=== PATIENT | male | born 1950 | race Caucasian/White ===

== ENCOUNTER 2018-12-08 00:51 | Outpatient (CLI) | payer OTHER ==
[2018-12-08 09:53] LABS: Bilirubin Negative (Negative); Blood, Urine Negative (Negative); Clarity CLEAR (Clear); Glucose, Urine (Dipstick) Negative (Negative); Leukocyte Negative (Negative); Nitrite Negative (Negative); Protein, Urine (Dipstick) Negative (Neg-Trace); Specific Gravity, Urine 1.015 (1.002-1.036); Urobilinogen 0.2 mg/dL (0.2-1.0)
[2018-12-08 09:54] LABS: Bacteria/HPF None Seen HPF (None Seen); Hyaline Casts/LPF 0-3 HYALINE CAST LPF (0-3 Hyaline); RBC/HPF 0-3 HPF (0-3); Squamous Epithelial None Seen HPF (0-3); WBC/HPF None Seen HPF (0-3)
[2018-12-08 09:55] LABS: #Eosinphils 0.6 thou/uL (0.0-0.7); #Lymphocytes 1.4 thou/uL (1.20-3.40); #Monocytes 0.9 thou/uL (0.11-0.59); #Neutrophils 5.7 thou/uL (1.40-6.50); %Basophils 0.2 % (0.0-1.0); %Eosinophils 7.1 % (0.0-10.0); %Lymphocytes 16.4 % (21.0-51.0); %Monocytes 9.9 % (0.0-10.0); %Neutrophils 66.4 % (42.0-75.0); Hemoglobin 14.4 g/dL (14.0-18.0); Mean Corpuscular HGB CONC 33.1 g/dL (32.0-36.0); Mean Corpuscular Hemoglobin 29.8 pg (27.0-31.0); Mean Corpuscular Volume 90.1 fL (78.0-98.0); Mean Platelet Volume 8.2 fL (7.4-10.4); Platelet Count 262 thou/uL (130-400); RBC Distribution Width 11.6 % (11.5-14.5); Red Blood Cell (RBC) Count 4.83 mill/uL (4.70-6.10); White Blood Cell (WBC) Count 8.7 thou/uL (4.8-10.8)
[2018-12-08 10:14] LABS: Anion Gap 11 mmol/L (10-20); BUN (Urea Nitrogen) 19 mg/dL (8.4-25.7); Calc. Creatinine Clearance 0 mL/min (70-130); Calcium 10.6 mg/dL (7.8-10.44); Carbon Dioxide 29 mmol/L (23-31); Chloride 102 mmol/L (98-107); Estimated GFR-MDRD 52; Glucose 109 mg/dL (80-115); Potassium 4.5 mmol/L (3.5-5.1); Sodium 137 mmol/L (136-145)
--- NOTE | 2018-12-08 16:49 | EKG ---
Test Reason : Blood Pressure : / mmHG Vent. Rate : 060 BPM Atrial Rate : 060 BPM P-R Int : 156 ms QRS Dur : 086 ms QT Int : 406 ms P-R-T Axes : 059 040 021 degrees QTc Int : 406 ms Normal sinus rhythm Normal ECG No previous ECGs available Confirmed by DR. Lance SPIRNGER ([id number]) on 12/08/2018 4:49:02 PM Referred By: SHAHID Confirmed By:DR. Lance SPRINGER
== END 2018-12-08 00:52 | disposition home or self-care (01) ==
LOC: LABBT 00:51
PROVIDERS: ATTEND Orthopaedic Surgery Hand Surgery
DX: Z01.818 Encounter for other preprocedural examination (principal); M18.12 Unilateral primary osteoarthritis of first carpometacarpal joint, left hand
CPT/HCPCS: 80048; 81001; 85025; 93005; 93010

== ENCOUNTER 2018-12-15 10:48 | Day surgery (SDC) | payer OTHER ==
[2018-12-08 09:09] VITALS: BMI 25.8
[~2018-12-15 10:48] MED LIST: Dexamethasone 20 MG/5 ML VIAL ONE; Ketorolac Tromethamine 30 MG/ML VIAL ONE; Lidocaine 1% PF 5 ML VIAL ONE; Ondansetron PF 4 MG/2 ML Vial ONE; PROPOFOL 200 MG/20 ML VIAL ONE
[2018-12-15] MEDS ORDERED: Bupivacaine PF 0.5% 30 ML VIAL ONE (13:08)
[2018-12-15] MEDS ORDERED: Fentanyl 250 MCG/5 ML VIAL ONE (13:08)
[2018-12-15] MEDS ORDERED: Lidocaine 2% Jelly 5 ML TUBE ONE (13:10)
--- NOTE | 2018-12-15 15:42 | RAD ---
F4 intraoperative images of the left wrist: 12/15/2018 COMPARISON: None available HISTORY: Left wrist surgery FINDINGS: 4 intraoperative images are provided. A frontal and lateral radiograph is provided which de monstrates a percutaneous pin overlying the distal carpal row laterally in the region of the trapeziu m. The second 2 images demonstrate percutaneous hands overlying the proximal first and second metacarpal shafts. The trapezium appears absent on the second 2 images. IMPRESSION: Intraoperative imaging as detailed above.
[2018-12-15] MEDS ORDERED: Ketorolac Tromethamine 30 MG/ML VIAL ONE (16:52)
--- NOTE | 2018-12-16 08:15 | OP ---
DATE OF PROCEDURE: 12/15/2018 PREOPERATIVE DIAGNOSIS: Left thumb carpometacarpal osteoarthritis. POSTOPERATIVE DIAGNOSIS: Left thumb carpometacarpal osteoarthritis with over 80% loss of chondral surface on both sides of the thumb, carpometacarpal joint, marked subluxation. PROCEDURES PERFORMED: 1. Left thumb ligament replacement tendon interposition arthroplasty, carpometacarpal joint. 2. Flexor carpi radialis transfer. 3. Trapeziectomy, total. 4. C-arm supervision. 5. Application of short-arm splint. TOURNIQUET TIME: 106 minutes. ESTIMATED BLOOD LOSS: 15 mL. INDICATIONS: The patient failed conservative treatments including injections, modification of lifestyle, and splinting with radiographic and clinical findings consistent with the diagnosis above. DESCRIPTION OF PROCEDURE: After successful general endotracheal anesthesia by [facility], the patient had the time-out done, the limb was prepped and draped, and the curvilinear incision hockey-stick centered over the carpometacarpal joint was outlined along with the harvest FCR incisions. We carried this incision after exsanguination up through the skin and subcutaneous tissue. We released the fascia over the thenar muscles from the base of the thumb, protecting all superficial radial nerve branches. We then went just dorsal to the abductor pollicis longus and released the wrist joint capsule, tagging this with 2 heavy Vicryl stitches. Then, we proceeded to remove the remaining joint capsule of both radial dorsal and radial palmar from the trapezium. We identified very proximally the wound brachioradialis, from the sidewall, trapezium retracted and then completed the removal of the scaphotrapezial joint capsule and the trapezoid joint capsule as well as the carpometacarpal joint attachment. We lifted the trapezium out of 1 motion. I placed a heavy 3-0 Prolene in the posterior ulnar capsule just below the level of the flexor carpi radialis insertion to the second metacarpal. Then, we used a 2.5 drill bit to create an oblique approximately 30-degree angle hole from the lateral sidewall of the metacarpal base of the thumb into the junction of the chondral and subchondral bone. We removed all osteophytes from this site and afterwards, we then used a curette to enlarge the hole. We harvested the entire flexor carpi radialis tendon using the 2 incisions described above, brought into the wound and removed all muscle and then had to trim approximately one-third of it to make it fit through the tunnel. We then brought it through the tunnel and tensioned it, holding with 2 K-wires to hold the metacarpal base in appropriate alignment in terms of abduction in superior and inferior orientation. Once we had done this, the pins were in place. We then took the abductor pollicis. The flexor carpi radialis graft, secured it to the side of the metacarpal x2, the abductor pollicis longus x2, and then the underneath the proximal surface of the metacarpal base x2. Then, we weaned into remainder portion of the tendon and then tied that to the 3-0 heavy Prolene deep in the capsule. We released the tourniquet, obtained hemostasis, closed the capsule rim of the carpometacarpal joint to itself and then to any members of the deep joints of the carpus. Once this was done, we had hemostasis. We then closed the incision. We then cut the wires just outside the skin at the , closed the fascia with a 3-0 Monocryl, used a full running Monocryl to close subcutaneous tissue at all incisions and then used simple stitches to close the epidermis. Bulky dressing was applied along with a thumb spica splint, and the patient left the operating room without evidence of anesthetic operative complication. Job ID: [id number]
== END 2018-12-15 19:09 | disposition home or self-care (01) ==
LOC: SDC 10:48
PROVIDERS: ATTEND Orthopaedic Surgery Hand Surgery
PROC: 0LX80ZZ Transfer Left Hand Tendon, Open Approach (ICD-10-PCS; principal; 2018-12-15)
PROC: 0RQT0ZZ Repair Left Carpometacarpal Joint, Open Approach (ICD-10-PCS; principal; 2018-12-15)
DX: M18.12 Unilateral primary osteoarthritis of first carpometacarpal joint, left hand (principal); E78.00 Pure hypercholesterolemia, unspecified; I10 Essential (primary) hypertension; Z87.891 Personal history of nicotine dependence; Z79.82 Long term (current) use of aspirin; Z79.899 Other long term (current) drug therapy
CPT/HCPCS: 76000; J1885; J3010; S0020